=== PATIENT | male | born 1945 | race Caucasian/White ===

== ENCOUNTER → 2016-05-14 | Outpatient (CLI) | payer OTHER | LOC: BMCIMAGING 13:25 | PROVIDERS: ATTEND Urology | DX: N20.0 Calculus of kidney (principal) ==

== ENCOUNTER → 2016-07-21 | Outpatient (CLI) | payer OTHER | LOC: BMCIMAGING 14:08 | PROVIDERS: ATTEND Urology | DX: N13.30 Unspecified hydronephrosis (principal); N20.0 Calculus of kidney ==

== ENCOUNTER 2016-08-08 00:40 | Emergency (ER) | payer OTHER ==
[2016-08-08 00:49] VITALS: RESP 16; TEMP 98.4
--- NOTE | 2016-08-08 01:05 | EDPHY ---
H & P Stated Complaint: suprapubic catheter not workin since 8pm, d?C from [facility] this am HPI/ROS: HPI CHIEF COMPLAINT: Suprapubic catheter not working HISTORY OF PRESENT ILLNESS: This patient very pleasant 71-year-old male, significant past medical history for kidney stones he had procedure done by Dr. Kelley at of [facility] yesterday where he has had AFib suprapubic catheter for the past month due to a obstructing urethral stone. The urethral stone was removed according to the patient by Dr. Kelley yesterday where he had a normal urethral penile catheter placed, the stone was removed, he was discharged from this hospital today with the penile catheter removed but the suprapubic catheter in place. He tells me tried to urinate at midnight was unable to do so. He arrives to the emergency room states that his suprapubic catheter is not working however on exam the suprapubic catheter has been pulled out from the suprapubic site. There is no longer suprapubic catheter in place. Plan will be to bladder scan was hematuria any as I will talk to Urology and will most likely need to replace a suprapubic catheter. Past Medical History: Kidney stones Past Surgical History: Recent kidney stone surgery Social History: Denies drugs, etoh, tobacco. Family History: ROS REVIEW OF SYSTEMS: A comprehensive 10 point review of systems is otherwise negative aside from elements mentioned in the history of present illness. Exam Constitutional triage nursing summary reviewed, vital signs reviewed, awake/ alert. Eyes normal conjunctivae and sclera, EOMI, PERRLA. HENT normal inspection, atraumatic, moist mucus membranes, no epistaxis, neck supple/ no meningismus, no raccoon eyes. Respiratory clear to auscultation bilaterally, normal breath sounds, no respiratory distress, no wheezing. Cardiovascular rate normal, regular rhythm, no murmur, no edema, distal pulses normal. Gastrointestinal soft, non-tender, no rebound, no guarding, normal bowel sounds, no distension, no pulsatile mass. Genitourinary no CVA tenderness. Musculoskeletal no midline vertebral tenderness, full range of motion, no calf swelling, no tenderness of extremities, no meningismus, good pulses, neurovascularly intact. Skin pink, warm, & dry, no rash, skin atraumatic. Neurologic awake, alert and oriented x 3, AAOx3, moves all 4 extremities equally, motor intact, sensory intact, CN II-XII intact, normal cerebellar, normal vision, normal speech. Psychiatric normal mood/affect. Heme/Lymph/Immune no lymphadenopathy. Differential Diagnosis: Urinary obstruction, urinary retention, complication of suprapubic catheter falling out. Medical Decision Making: Plan for this patient will bladder scan, I will consult Urology. Re-evaluation: 0144 bladder scan shows 339 mL of urine. 206AM: Spoke with Susanna WHITE on-call Recommends 1st trying SP catheter 10 or 12 Citizen Of [place]. A if this does not work suprapubically recommend trans penile urethral catheter however she states that the patient may have some inflammation in the urethra from recent urological procedure recommends SP site 1st 0240AM: Patient has now been up to the bathroom twice and voided with a steady stream through his penile urethra. Patient is question if he really needs either catheter at this point given that he is voiding. I will touch base with Urology to see if they think he still needs the suprapubic catheter given that he is voiding here. I will also check a postvoid residual. 0350AM: Spoke with Susanna WHITE, I explained that this patient is voiding with postvoid residuals less than 100 with steady stream here twice in the emergency room the patient is questioning if he really needs the SP catheter in place. I touch back with Susanna WHITE data quality consultant for Dr. Bansal, who states that she does not feel this patient needs either catheter given that he is voiding here in the emergency room without any difficulty and has minimal postvoid residual. The patient has been updated and will go home however he understands he does get obstructed has trouble urinating he is more welcome to come back, can re- evaluate him. He should continue to follow up with his urological appointment with Dr. kelley as previously appointed this Wednesday. He understands if there is any questions or concerns or trouble urinating return emergency room. A dressing will be placed over suprapubic cath site. Source: Patient - Personal History Current Tetanus Diphtheria and Acellular Pertussis (TDAP): Yes - Medical/Surgical History Hx Asthma: No Hx Chronic Respiratory Disease: No Hx Diabetes: No Hx Cardiac Disease: No Hx Renal Disease: No Hx Cirrhosis: No Hx Alcoholism: No Hx HIV/AIDS: No Hx Splenectomy or Spleen Trauma: No Other PMH: pbh - Social History Smoking Status: Never smoked Constitutional: Initial Vital Signs Temperature (C) 36.9 C 08/08/16 00:44 Heart Rate 86 08/08/16 00:44 Respiratory Rate 16 08/08/16 00:44 Blood Pressure 163/96 H 08/08/16 00:44 O2 Sat (%) 94 08/08/16 00:44 O2 Delivery Mode Room Air Allergies/Adverse Reactions: No Known Allergies Allergy (Unverified 09/12/12 06:02) Home Medications: Medication Instructions Recorded Atorvastatin Calcium [Lipitor 40 40 mg PO DAILY 09/12/12 mg (RX)] Ondansetron Odt [Zofran Odt] 4 mg PO Q4PRN PRN #20 tab 09/12/12 Oxycodone HCl/Acetaminophen 1 - 2 each PO Q4H PRN #20 tablet 09/12/12 [Oxycodone-Acetaminophen 5-325] Tamsulosin HCl [Flomax] 0.4 mg PO DAILY PRN #5 cap 09/12/12 Departure - Departure Disposition: Home, Routine, Self-Care Clinical Impression: Cheung catheter problem Qualifiers: Encounter type: initial encounter Qualified Code(s): T83.9XXA - Unspecified complication of genitourinary prosthetic device, implant and graft, initial encounter Condition: Good Instructions: Cheung Catheter Placement and Care (ED), Urinary Retention in Men (ED) Additional Instructions: 1. Drink lots of fluids stay well-hydrated. 2. Return emergency room any time if you have trouble urinating or can't urinate. You may need a catheter placed back in. 3. I would recommend that you follow up with Urology at her previously scheduled appointment. However if there is any questions or concerns return to the ER. Referrals: Crystal Hutson MD [Primary Care Provider] - As per Instructions Slava Kelley MD [Medical Doctor] - As per Instructions
[2016-08-08 04:06] VITALS: BP 150/86; PULSE 76; O2SAT 93
== END 2016-08-08 04:05 | disposition home or self-care (01) ==
DX: T83.9XXA Unspecified complication of genitourinary prosthetic device, implant and graft, initial encounter (principal); Y82.8 Other medical devices associated with adverse incidents

== ENCOUNTER → 2016-09-16 | Outpatient (CLI) | payer OTHER | LOC: BMCIMAGING 13:24 | PROVIDERS: ATTEND Urology | DX: N13.30 Unspecified hydronephrosis (principal); R93.421 Abnormal radiologic findings on diagnostic imaging of right kidney; R93.422 Abnormal radiologic findings on diagnostic imaging of left kidney; Z87.442 Personal history of urinary calculi ==

== ENCOUNTER → 2016-12-14 | Outpatient (CLI) | payer OTHER | LOC: BMCIMAGING 10:54 | PROVIDERS: ATTEND Internal Medicine Endocrinology, Diabetes & Metabolism | DX: Z13.820 Encounter for screening for osteoporosis (principal); M85.80 Other specified disorders of bone density and structure, unspecified site; E21.3 Hyperparathyroidism, unspecified ==

== ENCOUNTER → 2016-12-16 | Outpatient (CLI) | payer OTHER | LOC: FIMAGING 11:24 | PROVIDERS: ATTEND Internal Medicine Endocrinology, Diabetes & Metabolism | PROC: CG111ZZ Planar Nuclear Medicine Imaging of Parathyroid Glands using Technetium 99m (Tc-99m) (ICD-10-PCS; principal; 2016-12-16) | DX: D35.1 Benign neoplasm of parathyroid gland (principal); E21.3 Hyperparathyroidism, unspecified | CPT/HCPCS: 78070; A9500 ==

== ENCOUNTER → 2017-01-04 | Outpatient (CLI) | payer OTHER | LOC: BMCIMAGING 15:11 | PROVIDERS: ATTEND Otolaryngology | DX: E04.2 Nontoxic multinodular goiter (principal); E21.3 Hyperparathyroidism, unspecified | CPT/HCPCS: 76536-PO ==

== ENCOUNTER → 2017-01-12 | Outpatient (CLI) | payer OTHER ==
[~2017-01-12] MED LIST: LIDOCAINE 1% 300 MG/30 ML SDV ONE
== END ==
LOC: FIMAGING 11:58
PROVIDERS: ATTEND Internal Medicine Endocrinology, Diabetes & Metabolism
PROC: 0G9G3ZZ Drainage of Left Thyroid Gland Lobe, Percutaneous Approach (ICD-10-PCS; principal; 2017-01-12)
PROC: 0G9H3ZZ Drainage of Right Thyroid Gland Lobe, Percutaneous Approach (ICD-10-PCS; principal; 2017-01-12)
DX: E04.2 Nontoxic multinodular goiter (principal)

== ENCOUNTER 2017-01-18 09:25 | Observation (INO) | payer OTHER ==
[2017-01-18] MEDS ORDERED: ceFAZolin 2 GM/SWFI 2 GM/20 ML SYR IVP ONE (11:02)
[2017-01-18] MEDS ORDERED: LIDO/EPI 2%** Not for Epidural 20 ML MDV ONE (11:47)
[2017-01-18] MEDS ORDERED: LIDOCAINE 1% 300 MG/30 ML SDV ONE (11:47)
[2017-01-18] MEDS ORDERED: LR 1,000 ML IV ONE (12:00)
[2017-01-18] MEDS ORDERED: LIDOCAINE 1% 2 ML INJ ID PRN (12:00)
--- NOTE | 2017-01-18 13:00 | PDHPUP ---
History & Physical Update H&P update statement: This history and physical update is based on an assessment of the patient which was completed after admission or registration (within 24 hours), but prior to the surgery/procedure. H&P update: H&P reviewed & patient examined H&P changes: U/S showed a R inf thyroid nodule and a L sup nodule. Both FNA. Path back late last week. Showed AUS on R and benign colloid nodule on L. D/w Korin and we both agreed while in OR will plan for R paola vs. sending and waiting for Afirma. Pt agreed. Also I am suspicious that the + sestamibi for a R inf adenoma is actually the R inf nodule. D/w pt that in that case sestamibi is nonlocalizing and may require bilateral exploration, and with higher risk that we may not find an obvious adenoma. If that is the case, and was still hyperpara post op, would require more w/u. He agrees. Risks discussed
[2017-01-18 13:18] LABS: ANION GAP 12 mEq/L (8-16); CALCIUM 10.7 mg/dL (8.5-10.4); CARBON DIOXIDE 24 mEq/l (22-31); CHLORIDE 107 mEq/L (97-110); CREATININE 1.3 mg/dL (0.7-1.3); GLOMERULAR FILTRATION RATE 54; GLUCOSE 88 mg/dL (70-100); SODIUM 143 mEq/L (134-144)
[2017-01-18] MEDS ORDERED: MIDAZOLAM 2 MG/2 ML VIAL IVP ONE (13:20)
--- NOTE | 2017-01-18 13:23 | PDANEPAE ---
ANE History of Present Illness 70 year old male for R hemithyroidectomy and parathyroidectomy. ANE Past Medical History - Cardiovascular History Hx Hypertension: No Hx Arrhythmias: No Hx Chest Pain: No Hx Coronary Artery / Peripheral Vascular Disease: No Hx CHF / Valvular Disease: No Hx Palpitations: No Cardiovascular History Comment: ATORVASTATIN - HYPERCHOLESTEROL - Pulmonary History Hx COPD: No Hx Asthma/Reactive Airway Disease: No Hx Recent Upper Respiratory Infection: No Hx Oxygen in Use at Home: No Hx Sleep Apnea: No Sleep Apnea Screening Result - Last Documented: Negative - Neurologic History Hx Cerebrovascular Accident: No Hx Seizures: No Hx Dementia: No - Endocrine History Hx Diabetes: No - Renal History Hx Renal Disorders: Yes Renal History Comment: KIDNEY STONES RECURRENT - Liver History Hx Hepatic Disorders: No - Neurological & Psychiatric Hx Hx Neurological and Psychiatric Disorders: No - Cancer History Hx Cancer: No Cancer History Comment: PROSTATE TXD W/SEEDS - Congenital Disorder History Hx Congenital Disorders: No - GI History Hx Gastrointestinal Disorders: No - Other Health History Other Health History: NEG - Chronic Pain History Chronic Pain: No - Surgical History Prior Surgeries: KIDNEY STONE SURG. HERNIA. HEMORRHOIDS ANE Review of Systems Review of systems is: negative Review of Systems: - Exercise capacity METS (RN): 4 METS ANE Patient History - Allergies Allergies/Adverse Reactions: No Known Allergies Allergy (Unverified 09/12/12 06:02) - Home Medications Home Medications: Atorvastatin Calcium [Lipitor 40 mg (RX)] 40 mg PO DAILY 09/12/12 [Last Taken ] Cholecalciferol Vit D3 [Vitamin D3 (*)] 1,000 units PO DAILY 01/04/17 [Last Taken 01/11/17] Multivitamins [Multivitamin (*)] 1 each PO DAILY 01/04/17 [Last Taken 01/11/17] Horton-3S/Dha/Epa/Fish Oil [Horton-3 Fish Oil 1,200 mg Sfgl] 1 each PO BID [Last Taken 01/11/17] Tamsulosin HCl [Flomax] 0.8 mg PO DAILY PRN 01/04/17 [Last Taken 01/18/17] - NPO status NPO Since - Liquids (Date): 01/17/17 NPO Since - Liquids (Time): 21:00 NPO Since - Solids (Date): 01/17/17 NPO Since - Solids (Time): 21:00 - Smoking Hx Smoking Status: Never smoked - Family Anes Hx Family Hx Anesthesia Complications: NEG ANE Labs/Vital Signs - Labs Result Diagrams: 01/18/17 12:30 - Vital Signs Blood Pressure: 139/95 Heart Rate: 78 Respiratory Rate: 16 O2 Sat (%): 96 Height: 182.88 cm Weight: 85.729 kg ANE Physical Exam - Airway Neck exam: FROM Mallampati Score: Class 2 Mouth exam: normal dental/mouth exam - Pulmonary Pulmonary: no respiratory distress - Cardiovascular Cardiovascular: regular rate and rhythym - ASA Status ASA Status: II ANE Anesthesia Plan Anesthesia Plan: general endotracheal anesthesia
[2017-01-18] MEDS ORDERED: PROPOFOL/EMULSION 500 MG/50 ML BOTTLE IV ONE ×2 (13:24→15:28)
[2017-01-18] MEDS ORDERED: fentaNYL 250 MCG/5 ML INJ ONE (13:24)
[2017-01-18] MEDS ORDERED: MIDAZOLAM 2 MG/2 ML VIAL ONE (13:29)
[2017-01-18 13:30] LABS: PTH INTACT NO MINERALS 148.5 pg/ml (10.8-79.4)
[2017-01-18] MEDS ORDERED: PROMETHAZINE HCL 25 MG/ML INJ IVP PRN (14:36)
[2017-01-18] MEDS ORDERED: ONDANSETRON 4 MG/2 ML VIAL IVP PRN ×2 (14:36→17:13)
[2017-01-18] MEDS ORDERED: ACETAMINOPHEN 500 MG TAB PO PRN (14:36)
[2017-01-18] MEDS ORDERED: LR 500 ML IV PRN (14:36)
[2017-01-18] MEDS ORDERED: HYDROmorphONE/DILAUDID 1 MG/ML INJ IVP PRN (14:36)
[2017-01-18] MEDS ORDERED: fentaNYL 100 MCG/2 ML INJ IVP PRN (14:36)
[2017-01-18] MEDS ORDERED: ALBUTEROL 3 ML DEYVIAL IH PRN (14:36)
[2017-01-18] MEDS ORDERED: LABETALOL HCL 50 MG/10 ML SYR IVP PRN (14:36)
[2017-01-18] MEDS ORDERED: DEXAMETHASONE 4 MG/ML VIAL IVP PRN (14:36)
[2017-01-18] MEDS ORDERED: MEPERIDINE 25 MG/ML SYR IVP PRN (14:36)
[2017-01-18] MEDS ORDERED: HYDROCODONE/APAP 5/325 TAB PO PRN (14:36)
[2017-01-18] MEDS ORDERED: NALOXONE HCL 0.4 MG/ML INJ IVP PRN (14:36)
--- NOTE | 2017-01-18 17:25 | POSTOPPROG ---
Post Op Note Date of Operation: 01/18/17 Surgeon: Mary Smith Pershing Missile Crewmember: Ronny Avilez MD Anesthesiologist: Catia Verdin Anesthesia: GET(General Endotracheal) Pre-op Diagnosis: hyperparathyroidism, R inf thyroid nodule AUS Post-op Diagnosis: same Procedure: R parathyroidectomy, R hemithyroidectomy, NIMS Findings: Large R inf thyroid nodule, follicular lesion, R sup PT 861 mg Inf/Abcess present in the surg proc area at time of surgery?: No EBL: Minimal Complications: none apparent Drains: Kailash Armendariz Specimen(s): R sup parathyroid R inf parathyroid R hemithyroid
[2017-01-18] MEDS ORDERED: D5W 1/2 NS W/ 20 KCl/L 1,000 ML IV SCH (17:30)
--- NOTE | 2017-01-18 17:34 | POSTANESTH ---
Post Anesthetic Evaluation Cardiovascular Status: Normal, Stable Respiratory Status: Normal, Stable Level of Consciousness/Mental Status: Mildly Sleepy, Arousable Pain Control: Adequate, Prn Tx Ordered Nausea/Vomiting Control: Adequate, Prn Tx Ordered Complications Possibly Related to Anesthesia: None Noted
[2017-01-18] MEDS ORDERED: HYDROmorphONE/DILAUDID 1 MG/ML INJ ONE (17:44)
[2017-01-18] MEDS ORDERED: fentaNYL 100 MCG/2 ML INJ ONE (17:44)
[2017-01-18] MEDS: OXYCODONE/APAP 5/325 TAB PO PRN (19:21)
[2017-01-18 23:13] VITALS: RESP 18
[2017-01-19] MEDS: OXYCODONE/APAP 5/325 TAB PO PRN (03:12)
[2017-01-19 05:26] LABS: CALCIUM 9.1 mg/dL (8.5-10.4); CREATININE 1.1 mg/dL (0.7-1.3)
[2017-01-19 05:33] LABS: PTH INTACT NO MINERALS 22.4 pg/ml (10.8-79.4)
[2017-01-19 08:09] VITALS: BP 108/64; PULSE 67; TEMP 98.1; O2SAT 94
[2017-01-19] MEDS ORDERED: TAMSULOSIN HCL 0.4 MG CAP PO SCH (09:00)
[2017-01-19] MEDS ORDERED: ATORVASTATIN CALCIUM 40 MG TAB PO SCH (09:00)
--- NOTE | 2017-01-19 10:44 | SOAPPROG ---
SOAP Progress Note Assessment/Plan: Assessment: Plan: Objective: Vital Signs Temp Pulse Resp BP Pulse Ox 36.7 C 67 18 108/64 94 01/19/17 08:00 01/19/17 08:00 01/19/17 08:00 01/19/17 08:00 01/19/17 08:00 Laboratory Results 01/18/17 12:30 01/18/17 01/19/17 01/20/17 05:59 05:59 05:59 Intake Total 3171 150 Output Total 165 Balance 3006 150
--- NOTE | 2017-01-19 10:47 | ASDISCHSUM ---
Discharge Information Plan Status:Home with No Needs Medically Cleared to Leave:01/18/2017 Discharge Date:01/18/2017 CM D/C Disposition: ADT D/C Disposition: Projected Discharge Date:01/19/2017 12:00 AM Transportation at D/C: Discharge Delay Reason: Follow-Up Date:01/19/2017 12:00 AM Discharge Slot: Final Diagnosis: Placement Information Patient Contact Information Contact Name:RAYMUNDO Relationship: Address:[address] City:[facility] Phone: State/Zip Code:[place] [address] Email: Financial Information Financial Class: Primary Plan Desc:MEDICARE OUTPATIENT Primary Plan Number:[id number] Secondary Plan Desc:HUMANA Secondary Plan Number:[id number] Assessment Information LACE LACE Length of stay for Answers: Less than 1 day current admission Acuity / Level of Care Answers: No. Emergency dept visits in Answers: 0 last 6 months Date Signed: 01/19/2017 10:46 AM Electronically Signed By:Susi Hood RN Intervention Information
--- NOTE | 2017-01-19 10:49 | ASMTCMCOM ---
CM Note CM Note Notes: Chart reviewed. Met with patient and his . He is s/p thyroid surgery. He is quite anxious to go home. They decline need for any services. He has been cleared for dc per patient and his . CM available should needs arise. Date Signed: 01/19/2017 10:49 AM Electronically Signed By:Susi Hood RN
--- NOTE | 2017-01-19 13:52 | SOAPPROG ---
SOAP Progress Note Assessment/Plan: Assessment/Plan: POD 1 R parathyroidectomy and R hemithyroidectomy. Doign well, minimal pain. Swallowing well. Drain output 45 so will need to keep in until likely tomorrow. D/c with drain and i'll see him tomorrow to remove drain and check Ca. 01/19/17 13:49 Subjective: Did well o/n. PTH 22 and Ca 9.1 this am. Feels good, better, minimal pain, eating well. Objective: AFVSS RA incision intact, no hematoma, neck flat drain in place, stripped, 15cc in bulb voice strong, slightly raspy Vital Signs Temp Pulse Resp BP Pulse Ox 36.7 C 67 18 108/64 94 01/19/17 08:00 01/19/17 08:00 01/19/17 08:00 01/19/17 08:00 01/19/17 08:00 Laboratory Results 01/18/17 12:30 01/18/17 01/19/17 01/20/17 05:59 05:59 05:59 Intake Total 3171 150 Output Total 165 15 Balance 3006 135 ICD10 Worksheet Patient Problems: Problems Problem Status Onset Hyperparathyroidism Acute - ICD10 Problem Qualifiers (1) Hyperparathyroidism
--- NOTE | 2017-01-21 17:18 | GOP ---
[f rep st] OPERATIVE REPORT DATE OF OPERATION: SURGEON: Mary Smith MD ANESTHESIA: General. PREOPERATIVE DIAGNOSIS: 1. Hyperparathyroidism. 2. Right thyroid nodule, fine-needle aspiration positive for atypia of undetermined significance. POSTOPERATIVE DIAGNOSIS: 1. Hyperparathyroidism. 2. Right thyroid nodule, fine-needle aspiration positive for atypia of undetermined significance. PROCEDURE PERFORMED: 1. Right superior parathyroidectomy. 2. Right hemithyroidectomy. 3. Recurrent laryngeal nerve monitoring utilizing the WearS system. FINDINGS: Patient was found to have a preoperative PTH of 148. He had a preoperative calcium of 11. 1. Postoperatively, after removal of the adenoma, the PTH dropped to 64. A right inferior parathyro id that looked slightly enlarged was sent, and this was noted to be somewhat enlarged by size, but no t really by cellularity on path, and the PTH did not drop, so we continued our search and found a rig ht superior parathyroid, which was sent as a frozen section; this was 861 mg. The PTH dropped to 64. For the right hemithyroidectomy, he had a fairly large right inferior nodule which was removed and sent for pathology. The frozen path came back as a follicular lesion, and so we did not proceed with the completion at this point. ESTIMATED BLOOD LOSS: Minimal. INDICATIONS: The patient is a very pleasant 71-year-old male who has a history of kidney stones, fat igue, and lethargy. He was noted to have a high PTH and calcium. A sestamibi scan showed a likely a denoma in the right inferior pole, and he was referred to me for evaluation. I ordered an ultrasound to confirm this right inferior pole location of an adenoma, and this did not find that, but it did s how 2 thyroid nodules, 1 in the right inferior pole, which likely was what was being picked up on the sestamibi scan. FNA of this showed atypia of undetermined significance, and an FNA of the left thyr oid nodule showed benign colloid nodule. In discussion with the patient, as well as the endocrinolog ist, Dr. Langley, we discussed doing just a right hemithyroidectomy secondary to the atypia of undeter mined significance, since we would be there as well already. The patient agreed. We also discussed the fact that he may require bilateral exploration, assuming that the sestamibi scan was inaccurate. DESCRIPTION OF PROCEDURE: The patient was first seen in the preoperative area where informed consent was obtained. He was then brought back to the operating room where Anesthesia sedated and intubated using a NIMS tube. All probes were attached, and it was confirmed to be monitoring appropriately on both sides. The bed was turned 180 degrees. A shoulder roll was placed, and he was prepped and dennis ped in a sterile fashion. I initially injected about 4 cc of 2% lidocaine with 1:100,000 epinephrine into the area of the skin crease in between the sternal notch and the cricoid. After this had suffi cient time to act, a 15 blade was used to make an incision through the skin and subcutaneous tissues. The subcutaneous fat was removed, and underlying this was the platysma. This was divided and then subplatysmal flaps were elevated superiorly and inferiorly. Weitlaner retractors were used to give g ood visualization of this area. At this point, the strap musculature was divided in the midline, and then the strap musculature overlying the right thyroid was released, thereby exposing the right thyr oid, as this was retracted back. At this point, the right thyroid capsule was gently dissected clear of the muscle and fascial tissues. We attempted to begin our search for the parathyroidectomy infer iorly, as this was where the sestamibi showed it was possible. He was noted to have a fairly large r ight nodule that was somewhat under the clavicle which made this somewhat difficult. The area around the right inferior thyroid lobe was released, as well as the inferior thyroid vessels, thereby allow ing us to elevate the right thyroid lobe inferiorly up, and then visualized the tissues in the centra l neck. We found an area of bulky tissue that was somewhat surrounded by fat and also looked to have a parathyroid within this that was slightly enlarged. This area was removed, and it was sent off e field for frozen pathology and, as well, a PTH was drawn 10 minutes later. At this point, we then began our continuation of removing the right thyroid lobe. We continued our dissection superiorly. The superior pole vessels were clamped, ligated, and divided, and then the thyroid was released later ally and then retracted medially and superiorly. At this point, I took care to attempt to find the r ecurrent laryngeal nerve, which was found. This was dissected out to its entry into the cricoid-thyr oid joint and then West ligament was divided. The thyroid was released from the underlying trachea and then divided just to the left of the isthmus, thereby removing the right hemithyroid as well as t he isthmus. This was sent off the field for frozen pathology to evaluate the right inferior nodule. During this time, we got the PTH back as well as the frozen analysis of the parathyroid. The pathol ogist noted that the parathyroid that we had sent was somewhat enlarged based on size, but did not lo ok particularly hypercellular. The PTH actually went up, and so we began our search for the adenoma. We had not seen the right superior parathyroid as we were removing the thyroid. We began dissectin g in the central neck, taking care to note the recurrent laryngeal nerve. We were able to palpate a slight nodule just above and deep to the nerve, and so this was dissected out and noted to be a fairl y prominent adenoma likely. This was removed and sent off for frozen pathology, and another PTH was drawn 10 minutes after removal. At this point, the wound was irrigated out copiously with normal syd ine. Any small bleeding vessels were cauterized using bipolar cautery. A small amount of Surgicel w as placed in the tracheoesophageal groove on the right. At this point, we then waited for the path a s well as the PTH levels. The pathologist called back and noted that this was a fairly large hyperce llular parathyroid that weight 161 mg. The PTH came back as 64, so at this point, this was considere d a successful parathyroid adenoma finding and removal. A 10-Dominican round silicone OKSANA drain was plac ed exiting the right aspect of the skin. This was sutured in place to the skin using a 2-0 silk. I then closed the strap musculature using 3-0 Vicryl in an interrupted fashion, the platysma and subcut aneous tissues were closed using 3-0 Vicryl interrupted fashion, and then the skin was closed using a 5-0 Monocryl in a running subcuticular fashion. The wound was cleaned and dried, Mastisol was place d over the skin edges, and then Steri-Strips were placed over the incision. At this point, the patie nt was turned back over to Anesthesia where he was awakened, extubated, and taken to PACU in stable c ondition. There were no complications. He tolerated the procedure well and his voice was strong if not slightly raspy postoperatively. SPLUNK DEVELOPER SURGEON: Juve Avilez MD. COMPLICATIONS: None. /[id number]/MODL
== END 2017-01-19 11:35 | disposition home or self-care (01) ==
LOC: F3E 11:28
PROVIDERS: ADMIT Otolaryngology; ATTEND Otolaryngology
PROC: 0GTR0ZZ Resection of Parathyroid Gland, Open Approach (ICD-10-PCS; principal; 2017-01-18 13:00)
PROC: 0GTK0ZZ Resection of Thyroid Gland, Open Approach (ICD-10-PCS; principal; 2017-01-18 13:00)
DX: E21.3 Hyperparathyroidism, unspecified (principal); E04.1 Nontoxic single thyroid nodule
CPT/HCPCS: 60271; 60500; J0690; J1170; J2250; J2704; J3010; J0171